=== PATIENT | male | born 1940 | race Caucasian/White ===

== ENCOUNTER 2016-11-28 11:39 | Outpatient (CLI) | payer MEDICARE, OTHER ==
[~2016-11-28] VITALS: Ht 175.3 cm; Wt 120.4 kg
[2016-11-28] MEDS ORDERED: AMLO5TAB2 PO (11:54)
[2016-11-28] MEDS ORDERED: ASPI-586 PO (11:54)
[2016-11-28] MEDS ORDERED: LOSA50TA36 PO (11:54)
[2016-11-28] MEDS ORDERED: METO-274 PO (11:54)
[2016-11-28] MEDS ORDERED: ALLO300T2 PO (11:54)
[2016-11-28] MEDS ORDERED: CLOR7.5T3 PO (11:54)
[2016-11-28] MEDS ORDERED: NIAC500T24 PO (11:54)
[2016-11-28] MEDS ORDERED: OMEP20TA7 PO (11:54)
[2016-11-28] MEDS ORDERED: ATOR80TA76 PO (11:54)
[2016-11-28] MEDS ORDERED: FENO54TA PO (11:54)
[2016-11-28 12:04] VITALS: BP 134/70
== END 2016-11-28 13:35 | disposition home or self-care (01) ==
LOC: PREOP 11:39
PROVIDERS: ATTEND Urology
DX: Z01.818 Encounter for other preprocedural examination (principal); D49.4 Neoplasm of unspecified behavior of bladder
CPT/HCPCS: 87081

== ENCOUNTER 2016-12-03 06:10 | Day surgery (SDC) | payer MEDICARE, OTHER ==
[~2016-12-03] VITALS: Ht 175.3 cm; Wt 120.4 kg
[~2016-12-03 06:10] MED LIST: ALLO300T2 PO; AMLO5TAB2 PO; ASPI-586 PO; ATOR80TA76 PO; CLOR7.5T3 PO; FENO54TA PO; LOSA50TA36 PO; METO-274 PO; NIAC500T24 PO; OMEP20TA7 PO
[2016-12-03] MEDS ORDERED: LEVOFLOXACIN 500 MG/100 ML IV 100 ML ONE (06:16)
[2016-12-03 06:35] VITALS: BP 163/90
[2016-12-03] MEDS ORDERED: ROCURONIUM 50 MG/5 ML (ZEMURON) VIAL IV ONE (06:43)
[2016-12-03] MEDS ORDERED: fentaNYL INJECTION 100 MCG/2 ML AMP ONE (06:43)
[2016-12-03] MEDS ORDERED: proPOfol 200 MG/20 ML (DIPRIVAN) VIAL IV ONE (06:43)
[2016-12-03] MEDS ORDERED: MIDAZOLAM 2 MG/2 ML (VERSED) VIAL ONE ×2 (06:43→07:03)
[2016-12-03] MEDS ORDERED: CATHETER FLUSH 10 ML SYR IV PRN (07:00)
[2016-12-03] MEDS ORDERED: LEVOFLOXACIN 500 MG/D5W 100 ML (PRE-MIX) IV ONE (07:00)
[2016-12-03] MEDS ORDERED: FAMOTIDINE 20MG/2ML IV (PEPCID) ONE (07:03)
--- NOTE | 2016-12-03 07:05 | Progress Note-Pre Operative ---
Pre-Operative Progress Note H&P Reviewed The H&P was reviewed, patient examined and no changes noted. Date H&P Reviewed: Dec 03, 2016 Time H&P Reviewed: 07:04 Pre-Operative Diagnosis: MULTIPLE BLADDER TUMORS MELE BAGLEY MD Dec 03, 2016 7:05 am
--- NOTE | 2016-12-03 07:06 | Progress Note-Post Operative ---
Post-Operative Progess Note Surgeon (s)/Kettle Girl (s) Surgeon MELE BAGLEY MD Kettle Girl: N/A Pre-Operative Diagnosis MULTIPLE BLADDER TUMORS Post-Operative Diagnosis SAME Post-Op Procedure Note Date of Procedure: Dec 03, 2016 Name of Procedure Performed: TURBT'S Description of the Procedure: PER DICTATION Findings of the Procedure SAME Anesthesia Type GENERAL Estimated blood loss (mL): NEGLIGIBLE Specimen(s) collected/removed BLADDER TUMORS AND BASE MELE BAGLEY MD Dec 03, 2016 7:06 am
--- NOTE | 2016-12-03 07:07 | Discharge Inst-Urology ---
Discharge Inst-Urology Discharge Medications New, Converted, or Re-newed RX: RX on Chart Patient Instructions/Follow Up Plan Please make appointment to been seen in office in 2 weeks. On Friday, if no bleedings, may resume ASA Increase oral fluids for 48 hours and then as needed. Diet and Activity as tolerated. If questions or concerns contact your physician Or seek help at emergency department. MELE BAGLEY MD Dec 03, 2016 7:07 am
[2016-12-03] MEDS ORDERED: LACTATED RINGERS 1,000 ML IV PRN (07:13)
[2016-12-03] MEDS ORDERED: FAMOTIDINE 20MG/2ML IV (PEPCID) IV ONE (07:15)
[2016-12-03] MEDS ORDERED: MIDAZOLAM 2 MG/2 ML (VERSED) VIAL IV ONE (07:15)
[2016-12-03] MEDS ORDERED: SEVOFLURANE (ULTANE) 15 ML INHAL SOLN ONE (07:46)
[2016-12-03] MEDS ORDERED: LACTATED RINGERS 0 ML IV ONE (07:46)
[2016-12-03] MEDS ORDERED: SUGAMMADEX IV ONE (08:01)
[2016-12-03] MEDS ORDERED: LACTATED RINGERS 1,000 ML IV ONE (08:48)
[2016-12-03 09:00] VITALS: BP 158/85
[2016-12-03] MEDS ORDERED: SULF1TAB35 PO (09:05)
[2016-12-03] MEDS ORDERED: PHEN-640 PO (09:05)
--- NOTE | 2016-12-03 09:18 | OPERATIVE REPORT ---
DATE OF SERVICE: 12/03/2016 PREOPERATIVE DIAGNOSIS: Multiple bladder tumors. POSTOPERATIVE DIAGNOSIS: Multiple bladder tumors. OPERATION PERFORMED: Transurethral resection of multiple bladder tumors. SURGEON: Thuan Bagley MD ANESTHESIA: General. COMPLICATIONS: None. PROCEDURE: Under satisfactory general anesthesia, the patient in the left lithotomy position, genitalia were prepped and draped in the usual sterile fashion. Urethra was dilated with Deanne sounds to accommodate a 27-[place] Flores resectoscope. I again visualized the multiple small bladder tumors scattered around the left and the right side of the bladder, very superficial, easily shelled off the bladder with no evidence of invasion grossly at all. There was 1 that was lateral and slightly superior to the right ureteral orifice. This 1 seemed a little bit less superficial, so I went ahead and resected it with the base sent for staging. Bleeders were all cauterized and hemostasis was complete. Estimated blood loss negligible. The patient tolerated the procedure and anesthesia well and was sent to the recovery room in stable condition after emptying the bladder, removing the resectoscope and no need for catheter. Job ID: [id number] DocumentID: [id number] Dictated Date: 12/03/2016 08:08:28 Clinical Research Physician Date: 12/03/2016 09:18:30 Dictated By: THUAN BAGLEY MD
[2016-12-03 09:30] VITALS: BP 153/81
[2016-12-03 09:45] VITALS: BP 153/81
== END 2016-12-03 09:45 | disposition home or self-care (01) ==
LOC: SDC 06:10
PROVIDERS: ATTEND Urology
DX: C67.9 Malignant neoplasm of bladder, unspecified (principal)
CPT/HCPCS: 88305; 88307